=== PATIENT | female | born 2005 | race Caucasian/White ===

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

== ENCOUNTER 2024-02-07 01:19 | Outpatient (CLI) | payer BC, MEDICAID, SELFPAY ==
[2024-02-07 09:34] LABS: HCT 34.6 % (36.0-46.0); HGB 11.9 g/dL (11.2-15.7); MCH 29.3 pg (27.0-33.0); MCHC 34.4 % (32.0-36.0); MCV 85 fL (80-95); MPV 9.9 fL (8.0-11.0); Platelet Count 227 10^3/uL (130-400); RBC 4.06 10^6/uL (3.93-5.22); RDW 13.2 % (11.7-14.6); RDW-SD 40.6 fL
[2024-02-07 09:45] LABS: Glucose,1 Hr (Glucola) 120 mg/dL (80-140)
== END 2024-02-07 01:20 | disposition home or self-care (01) ==
LOC: LBO 01:25
PROVIDERS: PCP Family Medicine; Visit Provider Advanced Practice Midwife
DX: Z34.93 Encounter for supervision of normal pregnancy, unspecified, third trimester; Z3A.28 28 weeks gestation of pregnancy
CPT/HCPCS: 36415; 82950; 85027

== ENCOUNTER 2024-02-07 09:14 | Outpatient (REF) | payer BC, MEDICAID, SELFPAY ==
[2024-02-07 11:24] LABS: *AMPHETAMINES SCREEN URINE Negative (Negative); *BARBITURATES SCREEN URINE Negative (Negative); *BENZODIAZEPINES SCREEN URINE Negative (Negative); Cannabinoids THC Negative (Negative); Cocaine Screen,Urine Negative (Negative); METHADONE URINE SCREEN Negative (Negative); OPIATES URINE SCREEN Negative (Negative)
[2024-02-07 11:26] LABS: Tricyclic Antidepressants Negative (Negative)
[2024-02-08 12:05] LABS: Fentanyl Scr w/Rfx Confirm Negative ng/mL (<1)
[2024-02-14 10:24] LABS: Buprenorphine Negative ng/mL (Cutoff: 5.0)
== END 2024-02-07 09:15 | disposition home or self-care (01) ==
LOC: LBN 09:14
PROVIDERS: PCP Family Medicine; Visit Provider Advanced Practice Midwife
DX: O99.322 Drug use complicating pregnancy, second trimester (principal); Z3A.27 27 weeks gestation of pregnancy
CPT/HCPCS: 80307; 80348

== ENCOUNTER 2024-02-26 07:11 | Outpatient (CLI) | payer BC, MEDICAID, SELFPAY ==
[2024-02-26 07:14] VITALS: BP 107/63; PULSE 74; TEMP 36.5
[2024-02-26 07:19] VITALS: BP 107/63; PULSE 74
[2024-02-26 07:54] VITALS: BP 107/63; PULSE 74; TEMP 36.5
--- NOTE | 2024-02-26 07:54 | W.OBNST ---
Date of service: 02/26/24 Time of Service: 07:54 NST Evaluation Reason for NST Reasons for Nonstress Test: DECREASED MOVEMENT Gestational Age Gestational Age in Weeks and Days: 30 Weeks and 3Days Test and Monitor Explained Test/Monitor Explained: Test Explained, Monitor Explained and Patient Verbalized Understanding Vital Signs Blood Pressure: 107/63 Pulse: 74 Temperature: 97.7 F Urine Results Urine Protein: Negative Urine Ketones: Negative Urine Glucose: Negative Urine Blood: Negative NST Information Date on Monitor: 02/26/24 Time on Monitor: 07:15 Date off Monitor: 02/26/24 Time off Monitor: 07:42 Total Time on Monitor: 27 NST Interventions: PO Hydration Contraction Frequency: 0 NST Evaluation Patient States Movement: Present FHR Baseline: 145 Variability: Moderate 6-25 bpm Accelerations: 15x15 Decelerations: None NST Results: Reactive Note Ultrasound Done: Presentation (breech) Coding for Presentation w/NST: Completed Exam. NST Note Note: head in right upper quadrant NST Reviewed and Verified by: Francesca Mary
== END 2024-02-26 07:54 ==
LOC: BCD 07:12 → OBS 07:14
PROVIDERS: PCP Family Medicine; Visit Provider Advanced Practice Midwife
DX: O36.8130 Decreased fetal movements, third trimester, not applicable or unspecified (principal); Z3A.30 30 weeks gestation of pregnancy
CPT/HCPCS: 59025; 76815

== ENCOUNTER 2024-04-02 13:16 | Outpatient (REF) | payer BC, MEDICAID, SELFPAY | END 2024-04-02 13:17 | disposition home or self-care (01) | LOC: LBN 13:16 | PROVIDERS: PCP Family Medicine; Visit Provider Physician Assistant | DX: Z34.93 Encounter for supervision of normal pregnancy, unspecified, third trimester (principal); J02.9 Acute pharyngitis, unspecified; B34.9 Viral infection, unspecified | CPT/HCPCS: 87070; 87081 ==

== ENCOUNTER 2024-05-01 08:54 | Outpatient (CLI) | payer BC, MEDICAID, SELFPAY ==
[2024-05-01 14:20] VITALS: BP 110/70; PULSE 84; TEMP 36.8
[2024-05-01 14:25] VITALS: BP 110/70; PULSE 84
--- NOTE | 2024-05-01 17:20 | W.OBNST ---
Date of service: 05/01/24 Time of Service: 15:00 NST Evaluation Reason for NST Reasons for Nonstress Test: DECREASED MOVEMENT Gestational Age Gestational Age in Weeks and Days: 39 Weeks and 5Days Test and Monitor Explained Test/Monitor Explained: Test Explained and Monitor Explained Vital Signs Blood Pressure: 110/70 Pulse: 84 Temperature: 98.2 F Urine Results Urine Protein: Negative Urine Ketones: Negative Urine Glucose: Negative Urine Blood: Negative NST Information Date on Monitor: 05/01/24 Time on Monitor: 14:19 Date off Monitor: 05/01/24 Time off Monitor: 14:47 Total Time on Monitor: 28 NST Interventions: None NST Evaluation Patient States Movement: Present FHR Baseline: 140 Variability: Moderate 6-25 bpm Accelerations: 15x15 Decelerations: None NST Results: Reactive Note Ultrasound Done: N/A. NST Note Note: SSE performed for r/o SROM, found to be intact, nml vaginal mucous noted. NST Reviewed and Verified by: Francesca Mary
[2024-05-01 17:21] VITALS: BP 110/70; PULSE 84; TEMP 36.8
== END 2024-05-01 15:15 ==
LOC: BCD 08:57 → OBS 14:13
PROVIDERS: PCP Student in an Organized Health Care Education/Training Program; Visit Provider Advanced Practice Midwife
DX: O36.8130 Decreased fetal movements, third trimester, not applicable or unspecified (principal); Z3A.39 39 weeks gestation of pregnancy
CPT/HCPCS: 59025

== ENCOUNTER 2024-05-10 07:30 | Outpatient (CLI) | payer BC, MEDICAID, SELFPAY ==
[2024-05-10 14:27] VITALS: BP 104/63; PULSE 80
[2024-05-10 14:36] VITALS: BP 104/63; PULSE 80; TEMP 37
--- NOTE | 2024-05-10 15:30 | W.OBNST ---
Date of service: 05/10/24 Time of Service: 15:30 NST Evaluation Reason for NST Reasons for Nonstress Test: POSTDATES Gestational Age Gestational Age in Weeks and Days: 41 Weeks and 0Days Test and Monitor Explained Test/Monitor Explained: Test Explained, Monitor Explained and Patient Verbalized Understanding Vital Signs Blood Pressure: 104/63 Pulse: 80 Temperature: 98.6 F NST Information Date on Monitor: 05/10/24 Time on Monitor: 14:00 Date off Monitor: 05/10/24 Time off Monitor: 14:28 Total Time on Monitor: 28 NST Interventions: None Contraction Frequency: 0 NST Evaluation Patient States Movement: Present FHR Baseline: 150 Variability: Moderate 6-25 bpm Accelerations: 15x15 Decelerations: None NST Results: Reactive Note Ultrasound Done: ZHAO (postdates) Total ZHAO: 19 Other Pertinent Findings: Heart Rate (150), Presentation (cephalic, LOP) and Placental Location (anterior) Coding for ZHAO w/NST: Completed Exam. NST Note Note: Pt scheduled IOL for 05/13/24 NST Reviewed and Verified by: Francesca Mary
[2024-05-10 15:31] VITALS: BP 104/63; PULSE 80; TEMP 37
== END 2024-05-10 15:00 ==
LOC: BCD 07:30 → OBS 14:03
PROVIDERS: PCP Student in an Organized Health Care Education/Training Program; Visit Provider Advanced Practice Midwife
DX: O48.0 Post-term pregnancy (principal); Z3A.41 41 weeks gestation of pregnancy
CPT/HCPCS: 59025; 76815

== ENCOUNTER 2024-05-12 01:15 | Inpatient (IN) | payer BC, MEDICAID, SELFPAY ==
[2024-05-11 22:27] VITALS: BP 131/69; PULSE 93; TEMP 36.8
[2024-05-12] VITALS (98 sets, daily range): BP systolic 92–126; BP diastolic 50–82; PULSE 76–127; RESP 18–20; TEMP 36.7–37.4; O2SAT 96–100; BMI 32.0
--- NOTE | 2024-05-12 01:19 | W.PM.OBHPL1 ---
Date of service: 05/12/24 Time of Service: 01:19 Assessment and Plan Assessment and plan (1) Prolonged latent phase of labor: Status: Acute Assessment and plan: Admit to Center and routine admission labs. Comfort measures. Rest was encouraged. Ambien PO offered and accepted by Kt. Will monitor heart rate while awake and reassess when she awakes. Anticipate . OB-HPI Labor/Delivery History of Present Illness Reason for Visit: early labor Chief Complaint: Uterine Contractions. VANESSA Calculator Estimated Delivery Date Method Current WG Current Estimate 05/03/24 Ultrasound #1 41w 2d Other Estimates 04/17/24 LMP (Uncertain) 43w 4d Comments: Kt reports regular contractions at home. She was observed for 2 hours with slight change in cervical effacement and is admitted in prodromal labor for therapeutic rest. History of Present Expected Delivery Route/Plan - CNM FOB/boyfriend - Presley Bazan (first child) BG Does not want to use tub Varicella Non-Immune, offer vaccine (pt plans to decline) Mom, Ella and Presley for labor support GBS POSITIVE, plan PCN prophylaxis Specific Issues/Plan 1. Desires cfDNA - WNL declines CF/SMA screen 2. Migraines, [facility] neurology referral ordered 2a. Propanalol and Rizatriptan restarted by Dr. Tomas. F/up 01/08 2b. Per Neurology: Fioricet to be avoided, see note. Level 2 US offered and declined. 3. Low risk primipara, PHQ9 score=1, 5P screen+, UDS - neg 4. 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 CT+ at initial OB, pt & partner rx'ed, KESHIA end of October is negative 6. Initial UC&S contaminated with yeast, reviewed w/pt. 7. Chronic constipation, taking fiber supplement. advised Miralax daily & colace 100 mg qd 8. 90% percentile growth at 19 weeks 9. Initial 5 P's + for partner using Marijuana, patient has had neg UDS X 2 at 28 wks 10. Declines Tdap 11. Hgb 10.4 by fingerstick at 35 weeks- advised to take vitamin with iron daily PFSH All Active Problems (Updated 05/12/24 @ 01:26 by Magaly Mulkern, CNM) Prolonged latent phase of labor (Acute) Susceptible to varicella (non-immune), currently (Acute) Marijuana use during (Acute) Partner uses Migraine headache without aura (Acute) Chlamydia infection affecting in first trimester (Acute) (Acute) Hemorrhoid (Acute) Chronic constipation (Acute) Medical History Colitis autoimmune, transient Delayed menses Lumbar strain Thoracic myofascial strain Ganglion cyst Surgical History No pertinent past surgical history Family History Father No problems noted. Mother Migraine Social History Smoking/Tobacco Use Status: Former Tobacco Use Smoking risk assessment performed?: Yes Alcohol Intake: never Drug use: Never Substance use type: does not use Household members: significant other Current gender identity: female Do you feel safe at home: Yes Do you feel safe in your relationship?: Yes History History 1 Para 0 Hx # Term Pregnancies 0 Multiple births 0 Hx # Pregnancies 0 Ectopic pregnancies 0 AB induced 0 Hx Number of Living Children 0 AB spontaneous 0 Meds Allergies and Home Medications Allergies Allergy/AdvReac Type Severity Reaction Status Date / Time No Known Allergies Allergy Verified 05/06/24 15:16 Home Medications ?Medication ?Instructions ?Recorded ?Confirmed ?Type acetaminophen 500 mg tablet 500 mg PO Q6H PRN 03/10/22 05/11/24 History rizatriptan 10 mg tablet 10 mg PO DAILY PRN headache #12 10/09/23 05/11/24 Rx tabs vits,calcium no.73-iron 1 tab PO DAILY #90 tabs 04/10/24 05/11/24 Rx fum 28 mg iron-folic acid 1 mg tablet (Trinate) Exam Physical Exam Vital signs: Temp Pulse BP 98.2 F 93 H 131/69 05/11/24 22:27 05/11/24 22:27 05/11/24 22:27 Vital Signs Reviewed: Yes Constitutional Constitutional: no acute distress Detailed Labor and Delivery Exam Dilation: 1.5 Effacement (%): 90 station: -1 Cervix position: mid Consistency: soft Palomo Score: Cervical Points Exam 0 1 2 3 Dilation Closed 1-2cm 3-4 cm 5-6cm Effacement 0-30% 40-50% 60-70% 80% Consistency Firm Medium Soft Station -3 -2 -1,0 +1,+2 Position Posterior Mid Anterior Amniotic Membrane Status: Intact Monitor Mode: External Contraction Frequency(min): every 1-5 Contraction Duration(sec): 50 Contraction Intensity: Mild/Moderate Fetus A Heart Rate Baseline: 118 Monitor Accelerations: 15 X 15 Monitor Decelerations: None Variability: Moderate (6-25 BPM) Presentation: Cephalic Categories: Category I Est. Weight: 8 lb Assessment Note: exam by RN who reports chenge in effacement from 80 % to 90% in 2 hours. Risk Assessment Risk for Shoulder Dystocia Historical/Initial OB: NEGATIVE FOR: Pelvic Abnormality, Pre- BMI>30, Previous Shoulder Dystocia or Previous Macrosomia 36 Weeks: NEGATIVE FOR: Current Gestational DM, EFW>4500gms or Maternal Weight Gain>40lbs 40 Weeks: POSTIVE FOR: Post Dates; NEGATIVE FOR: EFW> 4500 gms or Maternal Weight Gain >40lb Risk for Pre-Eclampsia Date Initiated/Initials: not indicated, jk Yes, if one or more: NEGATIVE FOR: Hx Pre-E/Gest HTN, Chronic HTN, Multiple Gestation, Pre-gestational DM, Renal Disease, Systemic Lupus or APA Syndrome Yes, if 2 or more: POSITIVE FOR: Nulliparity; NEGATIVE FOR: Age>= 35 yrs, >10yr btwn pregnancies, BMI>30, ethinicty, Mother/Sister w/ Pre-E or Previous IUGR Risk for Post- Hemorrhage Initial: NEGATIVE FOR: Multiple Gestation, Previous PPH, Known Clotting Deficiency, Grand Multiparity or Anticoagulation 36 Weeks: NEGATIVE FOR: Anemia, hgb<10, Low platelets(thrombocytopenia), Gestational HTN or Pre-E, Polyhydraminios or EFW>4500gms 40 Weeks: NEGATIVE FOR: Anemia, hgb<10, Low platelets (thrombocytopenia), Gestation HTN or Pre-E, Polyhydraminios or EFW>4500gms At Risk?: No Risks Reviewed Risks Reviewed Upon Admission: Yes
--- NOTE | 2024-05-12 01:33 | W.OBNST ---
Date of service: 05/12/24 Time of Service: 01:33 NST Evaluation Reason for NST Reasons for Nonstress Test: OTHER, SEE COMMENT Reason for NST Other: Rule out labor Gestational Age Gestational Age in Weeks and Days: 41 Weeks and 2Days Test and Monitor Explained Test/Monitor Explained: Test Explained, Monitor Explained and Patient Verbalized Understanding Urine Results Urine Protein: Negative Urine Ketones: Negative Urine Glucose: Negative Urine Blood: Negative NST Information Date on Monitor: 05/12/24 Time on Monitor: 00:42 Date off Monitor: 05/11/24 Time off Monitor: 22:47 Total Time on Monitor: -115 NST Interventions: None NST Evaluation Patient States Movement: Present FHR Baseline: 120 Variability: Moderate 6-25 bpm Accelerations: 15x15 Decelerations: None NST Results: Reactive Note Ultrasound Done: N/A. NST Note Note: Kt presented to the center for rule out labor. She was having contractions which were every 1 1/2 - 5 minutes apart and irregular intensity. Reactive NST. She was observed x 2-3 hours and admitted for prodromal labor. NST Reviewed and Verified by: Magaly Guzman
[2024-05-12] MEDS: Zolpidem 10 MG TAB PO (01:52)
[2024-05-12 02:06] LABS: HCT 38.2 % (36.0-46.0); HGB 12.6 g/dL (11.2-15.7); MCH 28.4 pg (27.0-33.0); MCV 86 fL (80-95); Platelet Count 189 10^3/uL (130-400); RBC 4.43 10^6/uL (3.93-5.22); RDW 15.9 % (11.7-14.6); RDW-SD 49.1 fL; WBC 11.49 10^3/uL (4.4-10.8)
--- NOTE | 2024-05-12 04:40 | W.PM.OBNL1 ---
Date of service: 05/12/24 Time of Service: 04:40 Pelvic Exam Dilation: 3 Effacement (%): 100 station: -1 Cervix Position: mid Consistency: soft Vaginal Exam Presentation: Cephalic Contractions Monitor Mode: External Contraction Frequency(min): every 2-4 Contraction Duration(sec): 60 Intensity: Moderate Fetus A Monitor: Doppler Heart Rate Baseline: 120 Decelerations: None Assessment and Plan Assessment and plan (1) Spontaneous onset of labor: Status: Acute Assessment and plan: Comfort measures. Kt would like to try nitrous oxide for pain relief. She is considering an epidural for pain relief, Anticipate . (2) Group B streptococcal carriage complicating : Status: Acute Assessment and plan: Will start antibiotics per protocol for GBS prophylaxis. Objective Abnormal lab results 05/12/24 Range/Units 01:41 WBC 11.49 H (4.4-10.8) 10^3/uL RDW 15.9 H (11.7-14.6) % Temp Pulse BP 98.3 F 77 103/58 L 05/12/24 01:52 05/12/24 01:52 05/12/24 01:52 Laboratory Results WBC 11.49 10^3/uL (4.4-10.8) H 05/12/24 01:41 RBC 4.43 10^6/uL (3.93-5.22) 05/12/24 01:41 Hgb 12.6 g/dL (11.2-15.7) 05/12/24 01:41 Hct 38.2 % (36.0-46.0) 05/12/24 01:41 MCV 86 fL (80-95) 05/12/24 01:41 MCH 28.4 pg (27.0-33.0) 05/12/24 01:41 MCHC 33.0 % (32.0-36.0) 05/12/24 01:41 RDW 15.9 % (11.7-14.6) H 05/12/24 01:41 Plt Count 189 10^3/uL (130-400) 05/12/24 01:41 MPV 11.0 fL (8.0-11.0) 05/12/24 01:41 ABO/Rh A Positive 05/12/24 01:41 Antibody Screen NEGATIVE 05/12/24 01:41 Vital Signs Reviewed: Yes Notable Details: lungs clear and equal. Heart - regular rate and rhythm, extremities normal Subjective Patient Reports: New Complaints Interval history since last seen: Kt took antibiotics for rest. She rested but was unable to sleep and her contraction became stronger. Results Hemoglobin/Hematocrit: Hgb 12.6 g/dL (11.2-15.7) 05/12/24 01:41 Hct 38.2 % (36.0-46.0) 05/12/24 01:41 Abnormal Lab Findings: Abnormal Labs 05/12/24 01:41 WBC 11.49 H RDW 15.9 H
[2024-05-12] MEDS: Penicillin G POT. 5,000,000 UNITS in Normal Saline 100 ML 200 UNITS IVPB (04:54)
--- NOTE | 2024-05-12 06:51 | W.PM.OBNL1 ---
Date of service: 05/12/24 Time of Service: 06:51 Pelvic Exam Dilation: 6 Effacement (%): 100 station: -1 Cervix Position: mid Consistency: soft Vaginal Exam Presentation: Cephalic Contractions Monitor Mode: External Contraction Frequency(min): every 3 min Contraction Duration(sec): 50 Intensity: Moderate/Strong Fetus A Monitor: External (US) Heart Rate Baseline: 118 Variability: Moderate (6-25 BPM) Categories: Category I Accelerations: 15 X 15 Decelerations: None Amniotic Membrane Status: Intact Assessment and Plan Assessment and plan (1) Spontaneous onset of labor: Status: Acute Assessment and plan: Kt requests an epidural for pain relief and ZEKE paged. Anticipate Objective Abnormal lab results 05/12/24 Range/Units 01:41 WBC 11.49 H (4.4-10.8) 10^3/uL RDW 15.9 H (11.7-14.6) % Temp Pulse BP 98.2 F 99 H 120/77 05/12/24 05:03 05/12/24 05:03 05/12/24 05:03 Laboratory Results WBC 11.49 10^3/uL (4.4-10.8) H 05/12/24 01:41 RBC 4.43 10^6/uL (3.93-5.22) 05/12/24 01:41 Hgb 12.6 g/dL (11.2-15.7) 05/12/24 01:41 Hct 38.2 % (36.0-46.0) 05/12/24 01:41 MCV 86 fL (80-95) 05/12/24 01:41 MCH 28.4 pg (27.0-33.0) 05/12/24 01:41 MCHC 33.0 % (32.0-36.0) 05/12/24 01:41 RDW 15.9 % (11.7-14.6) H 05/12/24 01:41 Plt Count 189 10^3/uL (130-400) 05/12/24 01:41 MPV 11.0 fL (8.0-11.0) 05/12/24 01:41 ABO/Rh A Positive 05/12/24 01:41 Antibody Screen NEGATIVE 05/12/24 01:41 Subjective Patient Reports: New Complaints Interval history since last seen: Contractions are stronger Results Hemoglobin/Hematocrit: Hgb 12.6 g/dL (11.2-15.7) 05/12/24 01:41 Hct 38.2 % (36.0-46.0) 05/12/24 01:41 Abnormal Lab Findings: Abnormal Labs 05/12/24 01:41 WBC 11.49 H RDW 15.9 H
--- NOTE | 2024-05-12 07:13 | W.ANESPRE ---
General Info Date of Service Date Performed: 05/12/24 Height: 5 ft 2 in Weight: 79.379 kg Body Mass Index (BMI): 32.0 Meds Allergies and Home Medications Allergies Allergy/AdvReac Type Severity Reaction Status Date / Time No Known Allergies Allergy Verified 05/06/24 15:16 Home Medication ?Medication ?Instructions ?Recorded acetaminophen 500 mg tablet 500 mg PO Q6H PRN 03/10/22 rizatriptan 10 mg tablet 10 mg PO DAILY PRN headache #12 10/09/23 tabs vits,calcium no.73-iron 1 tab PO DAILY #90 tabs 04/10/24 fum 28 mg iron-folic acid 1 mg tablet (Trinate) Current Visit Medications: Current Medications Generic Name Dose Route Start Last Admin Trade Name Darielq PRN Reason Stop Dose Admin Fentanyl/Ropivacaine 200 ml 05/12/24 07:00 Fentanyl/Ropivacaine 2 Mcg/Ml And 0.1% 200 Ml Cadd Cassette EP DIRECTED [facility] Penicillin G Potassium 3,000, 50 mls @ 100 mls/hr 05/12/24 09:00 000 units/ Sodium Chloride IVPB Q4H [facility] IV Miscellaneous Supplies 1 each 05/12/24 01:15 Iv Access IV DIRECTED [facility] IV Miscellaneous Supplies 1 each 05/12/24 04:45 Iv Access IV DIRECTED [facility] Sodium Chloride 0 ml 05/12/24 01:15 Normal Saline Flush 10 Ml Syr IVP PRN PRN Sodium Chloride 0 ml 05/12/24 08:30 Normal Saline Flush 10 Ml Syr IVP BID [facility] Sodium Chloride 0 ml 05/12/24 01:15 Normal Saline 10 Ml Vial IJ DIRECTED PRN Sodium Chloride 0 ml 05/12/24 04:38 Normal Saline Flush 10 Ml Syr IVP PRN PRN Sodium Chloride 0 ml 05/12/24 08:30 Normal Saline Flush 10 Ml Syr IVP BID [facility] Sodium Chloride 0 ml 05/12/24 04:38 Normal Saline 10 Ml Vial IJ DIRECTED PRN PFSH Active Problems Active Problems: Problem Status Onset Code Group B streptococcal carriage complicating Acute O99.820 Spontaneous onset of labor Acute Prolonged latent phase of labor Acute O63.0 Susceptible to varicella (non-immune), currently Acute O09.899, Z28.39 Marijuana use during Acute O99.320, F12.90 Migraine headache without aura Acute G43.009 Chlamydia infection affecting in first trimester Acute O98.811, A74.9 Acute Z34.90 Hemorrhoid Acute K64.9 Chronic constipation Acute K59.09 Medical History Medical History Colitis autoimmune, transient Delayed menses Lumbar strain Thoracic myofascial strain Ganglion cyst Surgical History Surgical History No pertinent past surgical history Tobacco Smoking/Tobacco Use Status: Former Tobacco Use Alcohol Alcohol Intake: never Substance Use Substance use: Never Substance use type: does not use Prental History History 1 Para 0 Hx # Term Pregnancies 0 Multiple births 0 Hx # Pregnancies 0 Ectopic pregnancies 0 AB induced 0 Hx Number of Living Children 0 AB spontaneous 0 Vital Signs and Lab Results Vital Signs Most Recent Vital Signs in EMR: Most Recent Vital Signs Temp Pulse BP 36.8 C 99 H 120/77 05/12/24 05:03 05/12/24 05:03 05/12/24 05:03 Lab Results 05/12/24 01:41 Blood Type / Crossmatch: Antibody Screen NEGATIVE 05/12/24 Complete Blood Count: White Blood Count 11.49 10^3/uL (4.4-10.8) H 05/12/24 01:41 Red Blood Count 4.43 10^6/uL (3.93-5.22) 05/12/24 01:41 Hemoglobin 12.6 g/dL (11.2-15.7) 05/12/24 01:41 Hematocrit 38.2 % (36.0-46.0) 05/12/24 01:41 Platelet Count 189 10^3/uL (130-400) 05/12/24 01:41 Complete Metabolic Panel: No Data to Display Liver Function Panel: No Data to Display Coagulation Panel: No Data to Display Cardiac Panel: No Data to Display Arterial Blood Gas: No Data to Display Venous Blood Gas: No Data to Display Pancreas Panel: No Data to Display Thyroid Panel: No Data to Display Infectious Disease: No Data to Display Blood Cultures: No Data to Display Toxicology Panel: No Data to Display Panel: No Data to Display Anesthesia Assessment and Plan Anesthesia History Personal History: No History of General Anesthesia Family History: No Family History of Anesthesia Complications Exercise Tolerance Exercise Tolerance: Metabolic Equivalents>4 Pertinent Negatives Pertinent Negatives: No Major Cardiovascular Symptoms or Complaints and No Major Pulmonary Symptoms or Complaints Cardiac & Pulmonary Exam Cardiac Exam: Normal S1/S2 Heart Sounds Pulmonary Exam: Clear Bilateral Breath Sounds Implantable Cardiac Device Does patient have a Pacemaker or an ICD?: No Airway Exam Known Difficult Airway: No Mallampati Class: 1 Mouth Opening: Normal (> 3cm) Thyromental Distance: Greater than 3 cm Neck Range of Motion: Full ROM Neck Circumference: Normal Teeth Condition: Normal Dentition ASA Classification ASA Score: ASA 2 Emergency Case?: No NPO Status NPO Status: Full Stomach Status Status: Confirmed Anesthesia Plan Resuscitation Status: Full Code Anesthesia Technique: Epidural Anesthesia Airway Planned: Natural Airway Pain Management: Epidural Monitors Used: Standard Monitors
[2024-05-12] MEDS: FentaNYL/ROPIvacaine 2 mcg/ml and 0.1% 200 ML CADD Cassette EP (07:49)
--- NOTE | 2024-05-12 08:01 | W.ANESNEU ---
Epidural/Spinal Catheter Date Performed: 05/12/24 Procedure Start: 07:30 Procedure Stop: 07:50 Requesting Provider: Magaly Guzman Procedure Location: Obstetrics Reason Performed: Labor Epidural Standard Monitors Applied: Blood Pressure, SpO2 and See EMR for corresponding vital signs Patient Position: Sitting Sedation Given (Indicate Dose Given): No Sedation given Patient Mental Status: Awake Sterility: Hand Hygiene, Surgical Cap, Surgical Mask, Sterile Gloves, Sterile Drape/Sheet and Chlorhexidine Procedure Location: L3-L4 Interspace Epidural Needle: Tuohy 18 Gauge Needle Length: 4 Inch Needle Approach: Midline Epidural Procedure: Skin Prepped, Sterile Drape Placed, 1% Lidocaine to skin and subcutaneous tissue with 25G needle, Tuohy Needle placed, KENDELL to Saline Used, Epidural Catheter Placed, Negative Heme, Negative CSF Flow and Tuohy Needle Removed Catheter Placed?: Catheter Placed Test Dose (Indicate Dose Given): 3ml 1.5% Lidocaine with 1:200K Epinephrine Given Loss of Resistance Depth (cm): 6 Catheter depth at skin (cm): 13 Dressing: Sorbaview Dressing Placed, Mastisol Used and Dressing reinforced with Tape Epidural Provider Bolus (Indicate Dose Given): Total Ropivacaine 0.1% with Fentanyl 2mcg/ml Given from pump. (ml) Dose:: 1mL, patient was not having discomfort and disorganized labor pattern Additives (Indicate Dose Given ): None Infusion Medication: Medication Infusion Began Medication Infusion: Ropivacaine 0.1% with Fentanyl 2mcg/ml Maintenance Infusion Rate (ml/hour): 10 PCEA Bolus Dose (ml): 5 Block Level: N/A Paresthesia: None Ultrasound: Not Used Number of Attempts (See previous attempts in note section): 1 Procedure Tolerated: No Complications and Patient tolerated well Procedure Outcome: Successful Performed By: Brandie Hall
[2024-05-12] MEDS: Penicillin G POT. 3,000,000 UNITS in Normal Saline 50 ML 100 UNITS IVPB (08:55)
[2024-05-12] MEDS: Oxytocin/Normal Saline 30 UNIT/500 ML BAG 95 UNITS IV (12:55)
--- NOTE | 2024-05-12 13:21 | W.OBDELIVERY ---
Date of service: 05/12/24 Time of Service: 13:21 OB Labor/ Delivery Information Baby A Delivery Delivery Method: Spontaneaous Presentation: Cephalic Vertex Position: Right Occipital Anterior Cord Description-Baby A: 3 Vessels Amniotic Fluid: Clear Estimated Blood Loss: 250 Delivery Outcome: Liveborn Transferred: Remains with Mother Note: Kt progressed to 10 cms and had a slight urge to push. She labored down and napped for approximately an hour and was examined and vertex was at +2 station. FHTs 120s during first stage of labor. FHTs 120 in second stage. She began pushing well with good support from her support team. Second stage huddle was done. Spontaneous delivery of female delivered in VINAY position. Baby was placed on mother's abdomen and dried and stimulated. Spontaneous cry. Cord was clamped and cut by the RN . The placenta delivered spontaneously and appears to by intact with a three vessel cord. Pitocin 30 units IV was administered after delivery of the placenta. The perineum was inspected and it was intact with pbilateral periurethral lacerations which were not bleeding and were not repairrd . The baby did breastfeed. After delivery, Mother and baby and father of the baby were stable and bonding well in the delivery room and there were no complications. The baby's name is Luba Strong Luis Antonio Nurse Pattern Marker: Magaly Guzman Card Assembler: Brandie Hall Nurse: Meredith Mclean Nurse: Fabiola Carroll Labor/Delivery Information Number of Babies in Womb: 1 Steroids Given: None Reason Steroids Not Administered: N/A Group Beta Strep: Positive Antibiotics Administered: Yes Number of Doses of Antibiotics: 2 Rubella Status: Immune Blood Type: A+ Varicella Immunity: Nonimmune Born En Route: No Maternal Complications: None Shoulder Dystocia: No Stages of Labor Onset of Labor Date: 05/12/24 Onset of Labor Time: 07:00 ROM Baby A: 05/12/24 ROM Baby A: 08:01 ROM Total Time- Baby A: [id number] Infant Delivery Date-Baby A: 05/12/24 Delivery Time-Baby A: 12:47 Placenta Delivery Date-Baby A: 05/12/24 Placenta Delivery Time-Baby A: 12:54 Labor-Stage 3 Duration: 7 minutes Total Length of Labor-Baby A: 5 hours and 47 minutes Placenta Status: Delivered Baby A Infant Gender: Female Gestational Status: Term (39-41.6 wks) Gestational Age in Weeks/Days: 41 Weeks and 2 Days Score-1 Minute Interval(Baby A) Heart Rate-1 minute: 100 BPM or Greater Respiratory Effort- 1 minute: Spontaneous/Strong Cry Muscle Tone-1 minute: Active Movement Reflex Response-1 minute: Prompt Response Color-1 minute: Pallor or Cyanosis Total Score-1 minute: 8 Score-5 Minute Interval(Baby A) Heart Rate- 5 minute: 100 BPM or Greater Respiratory Effort-5 minute: Spontaneous/Strong Cry Muscle Tone-5 minute: Active Movement Reflex Response-5 minute: Prompt Response Color-5 minute: Bluish Hands or Feet Total Score- 5 minute: 9
[2024-05-12] MEDS: Dibucaine 1% 28 GM TUBE TP (13:57)
[2024-05-12] MEDS: Hamamelis Leaf/Glycerin 100 EACH BOX PR (13:58)
[2024-05-12] MEDS: Ibuprofen 600 MG TAB PO (14:25)
[2024-05-12] MEDS: Acetaminophen 325 MG TAB 650 MG PO (14:25)
[2024-05-13 02:00] VITALS: BP 109/62; PULSE 88; RESP 16
[2024-05-13 08:57] VITALS: BP 99/69; PULSE 102; RESP 16; TEMP 36.6; O2SAT 99
--- NOTE | 2024-05-13 11:07 | W.ANESPOSTOP ---
Postoperative Evaluation Date, Time and Location Date Performed: 05/13/24 Time Performed: 11:07 Patient Location: Obstetrics Vital Signs Most Recent Imported Vital Signs: Most Recent Vital Signs Temp Pulse Resp BP Pulse Ox 36.6 C 102 H 16 99/69 L 99 05/13/24 08:57 05/13/24 08:57 05/13/24 08:57 05/13/24 08:57 05/13/24 08:57 Pain Score Most Recent Pain Score: Most Recent Pain Score Pain Level 0 05/12/24 12:00 Assessment Mental Status: Awake (Alert & Oriented to Patient Baseline) Airway and Respiratory Function: Patent airway with normal (patient baseline) respiratory exam Cardiovascular Function: Hemodynamically Stable Hydration Status: Adequately Hydrated Nausea & Vomiting: No Nausea or Vomiting Pain: Pt. Denies Any Pain Peripheral Nerve Block: Patient did not receive a nerve block Postoperative Comments:: Epidural removed by staff respiratory therapist. Cath intact. Pt doing well with no concerns. Debbie Will CRNA
--- NOTE | 2024-05-13 12:39 | OBPPV_ITS ---
Date of service: 05/13/24 Time of Service: 12:39 Assessment and Plan Assessment and plan (1) Term of female : Status: Acute Assessment and plan: Caring for baby independently. Pain is managed well with oral analgesics. Voiding without difficulty. well. A - stable mother and baby , Post day 1 P - Discharge to home tomorrow. Routine post instructions. [facility] Subjective Subjective Patient comments: No complaints baby status: Doing well [place] feeding status: Exclusively breast feeding Exam Physical Exam Vital signs: Temp Pulse Resp BP Pulse Ox 97.9 F 102 H 16 99/69 L 99 05/13/24 08:57 05/13/24 08:57 05/13/24 08:57 05/13/24 08:57 05/13/24 08:57 Vital Signs Reviewed: Yes Constitutional Constitutional: no acute distress HEENT Exam HEENT Exam: Normal Respiratory Exam Respiratory Exam: Normal Cardiovascular Exam Cardiovascular Exam: Normal Fundal Exam Fundus: Below Umbilicus and Firm Rectal Exam Rectal Exam: Normal Extremities Exam Extremity Exam: Normal Skin Exam Skin Exam: Normal Psychiatric Exam Psychiatric Exam: Normal Results Hemoglobin/Hematocrit: Hgb 12.6 g/dL (11.2-15.7) 05/12/24 01:41 Hct 38.2 % (36.0-46.0) 05/12/24 01:41 Abnormal Lab Findings: Abnormal Labs 05/12/24 01:41 WBC 11.49 H RDW 15.9 H
[2024-05-13 19:45] VITALS: BP 111/82; PULSE 90; TEMP 36.7
[2024-05-14 08:35] VITALS: BP 107/75; PULSE 88; RESP 14; TEMP 36.2
--- NOTE | 2024-05-14 08:54 | DSE_ITS ---
Date of service: 05/14/24 Time of Service: 08:54 DS: Diagnosis Discharge Diagnosis (1) Term of female : Status: Acute Asessment and Plan: Caring for baby independently. Pain is managed well with oral analgesics. Voiding without difficulty. well. A - stable mother and baby , Post day 2 P - Discharge to home today. Routine post instructions. Follow up at [facility]. Discharge Plan Disposition Patient Disposition: Home Condition: Good Discharge Details Reason For Visit: Early Labor Admit Date/Time: 05/12/24 01:15 Admit Provider: Magaly Guzman Attending Provider: Magaly Guzman Primary Care Provider: Garland Baugh Home Meds and New Rx's Prescriptions: No Action rizatriptan 10 mg tablet 10 mg PO DAILY PRN (Reason: headache) Qty: 12 5RF acetaminophen 500 mg tablet 500 mg PO Q6H PRN Trinate 28 mg iron- 1 mg tablet 1 tab PO DAILY Qty: 90 4RF Discharge Instructions Activity:: Activity as Tolerated Equipment/Supplies:: No Equipment Needed Diet:: As Tolerated Discharge Orders Discharge Orders: Discharge Order (Routine); Ordered 05/14/24 Ordered By: Magaly Guzman OB:DS Summary Summary Vaginal Delivery Method: Spontaneaous Contraception Discussed Contraception Discussed: Yes Contraceptive Plan: Undecided (reviewed all methods), Infant Gender-Baby A: Female weight: 7 lb 13.399 oz Status at Discharge Functional status at discharge: independent ambulation Overall status at discharge: patient is back to baseline Mental Status: mental status grossly normal Speech and Movement: speech and movement normal Mood: congruent mood Affect: normal affect Quality:SDOH Health Related Social Needs: No Data to Display Exam Physical Exam Vital signs: Temp Pulse Resp BP Pulse Ox 97.2 F L 88 14 107/75 99 05/14/24 08:35 05/14/24 08:35 05/14/24 08:35 05/14/24 08:35 05/13/24 08:57 Vital Signs Reviewed: Yes Constitutional Constitutional: no acute distress Neck Exam Neck Exam: Normal Respiratory Exam Respiratory Exam: Normal Cardiovascular Exam Cardiovascular Exam: Normal Fundal Exam Fundus: Below Umbilicus and Firm Extremities Exam Extremity Exam: Normal Skin Exam Skin Exam: Normal Psychiatric Exam Psychiatric Exam: Normal PFSH All Active Problems (Updated 05/13/24 @ 12:40 by Magaly Guzman CNM) Term of female (Acute) Group B streptococcal carriage complicating (Acute) Prolonged latent phase of labor (Acute) Susceptible to varicella (non-immune), currently (Acute) Marijuana use during (Acute) Partner uses Migraine headache without aura (Acute) Chlamydia infection affecting in first trimester (Acute) (Acute) Hemorrhoid (Acute) Chronic constipation (Acute) Medical History Colitis autoimmune, transient Delayed menses Lumbar strain Thoracic myofascial strain Ganglion cyst Surgical History No pertinent past surgical history Family History Father No problems noted. Mother Migraine Social History Smoking/Tobacco Use Status: Former Tobacco Use Smoking risk assessment performed?: Yes Alcohol Intake: never Drug use: Never Substance use type: does not use Household members: significant other Housing: apartment Current gender identity: female Do you feel safe at home: Yes Do you feel safe in your relationship?: Yes History History 1 Para 0 Hx # Term Pregnancies 0 Multiple births 0 Hx # Pregnancies 0 Ectopic pregnancies 0 AB induced 0 Hx Number of Living Children 0 AB spontaneous 0 DS: Data Vitals/I&O Vitals and I&O: Vital Signs Temperature 97.2 F L 05/14/24 08:35 Temperature Source Oral 05/14/24 08:35 Pulse 88 05/14/24 08:35 Pulse Rhythm Regular 05/13/24 22:04 Respiratory Rate 14 05/14/24 08:35 Respiratory Depth Normal 05/13/24 22:04 Blood Pressure 107/75 05/14/24 08:35 Blood Pressure Mean 85 05/14/24 08:35 Pulse Oximetry 99 05/13/24 08:57 Oxygen Delivery Method Room Air 05/12/24 02:00 Oxygen Flow Rate 0 05/12/24 02:00 Pain Level 0 05/12/24 12:00 Comment patient denies feeling dizzy or light headed. States this blood pressure is her normal 05/12/24 17:00 Intake & Output 05/13/24 05/13/24 05/14/24 11:59 23:59 11:59 Other: Urine Color Yellow Yellow
== END 2024-05-14 10:46 | disposition home or self-care (01) | DRG 806 ==
LOC: BCD 03:15 → OBS 03:15
PROVIDERS: Admitting Provider Advanced Practice Midwife; PCP Student in an Organized Health Care Education/Training Program; Visit Provider Advanced Practice Midwife
DX: O48.0 Post-term pregnancy; O63.9 Long labor, unspecified; Z37.0 Single live birth; O99.324 Drug use complicating childbirth; O99.354 Diseases of the nervous system complicating childbirth; O99.824 Streptococcus B carrier state complicating childbirth; Z3A.41 41 weeks gestation of pregnancy; O71.82 Other specified trauma to perineum and vulva; G43.909 Migraine, unspecified, not intractable, without status migrainosus; K59.09 Other constipation; F12.90 Cannabis use, unspecified, uncomplicated; O99.62 Diseases of the digestive system complicating childbirth
CPT/HCPCS: 85027; 86850; 86900; 86901; J2540

== ENCOUNTER 2024-09-18 15:53 | Outpatient (REF) | payer BC, MEDICAID, SELFPAY ==
[2024-09-20 11:56] LABS: Chlamydia Result Negative (Negative); GC Result Negative (Negative)
== END 2024-09-18 15:54 | disposition home or self-care (01) ==
LOC: LBN 15:53
PROVIDERS: PCP Student in an Organized Health Care Education/Training Program; Visit Provider Advanced Practice Midwife
DX: Z30.09 Encounter for other general counseling and advice on contraception (principal); Z30.430 Encounter for insertion of intrauterine contraceptive device
CPT/HCPCS: 87491; 87591